=== PATIENT | male | born 2000 | race African-American/Black ===

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

== ENCOUNTER 2021-08-03 21:40 | Emergency (ER) | payer SELFPAY ==
[~2021-08-03] VITALS: Ht 180.3 cm; Wt 72.3 kg
[2021-08-03 21:45] VITALS: TEMP 98.2
[2021-08-03 22:40] VITALS: BP 127/77; PULSE 83
== END 2021-08-03 22:49 | disposition home or self-care (01) ==
LOC: COL.ER 21:40
DX: S62.396A Other fracture of fifth metacarpal bone, right hand, initial encounter for closed fracture (principal); W22.01XA Walked into wall, initial encounter

== ENCOUNTER 2021-10-29 15:31 | Emergency (ER) | payer SELFPAY ==
[~2021-10-29] VITALS: Ht 180.3 cm; Wt 72.7 kg
[2021-10-29 15:53] VITALS: BP 104/65; PULSE 81; TEMP 99.2
== END 2021-10-29 17:30 | disposition left against medical advice (07) ==
LOC: COL.ER 15:31
DX: R10.9 Unspecified abdominal pain (principal); Z87.442 Personal history of urinary calculi; Z87.09 Personal history of other diseases of the respiratory system

== ENCOUNTER 2021-10-30 19:07 | Emergency (ER) | payer SELFPAY ==
[~2021-10-30] VITALS: Ht 180.3 cm; Wt 72.7 kg
[2021-10-30 19:23] VITALS: BP 117/74; PULSE 88; TEMP 98.9
== END 2021-10-30 19:46 | disposition home or self-care (01) ==
LOC: COL.ER 19:07
DX: U07.1 COVID-19 (principal); Z28.310 Unvaccinated for COVID-19
CPT/HCPCS: J1885